=== PATIENT | female | born 1970 | race Caucasian/White ===

== ENCOUNTER 2022-06-25 05:53 | Day surgery (SDC) | payer OTHER ==
[2022-06-23 12:26] VITALS: BP 98/63
[2022-06-23 12:26] LABS: BASOPHILS % (AUTO) 0.6 % (0.0-5.0); EOSINOPHILS % (AUTO) 1.7 % (0.0-8.0); LYMPHOCYTES % (AUTO) 41.8 % (21.0-51.0); MEAN CORPUSCULAR HEMOGLOBIN 31.5 pg (27.0-33.0); MEAN CORPUSCULAR HGB CONC 32.5 g/dL (32.0-36.0); MEAN CORPUSCULAR VOLUME 96.9 fL (79-99); MONOCYTES % (AUTO) 4.6 % (3.0-13.0); NEUTROPHILS % (AUTO) 51.1 % (40.0-77.0); PLATELET COUNT (AUTO) 251 K/uL (130-400); RED BLOOD CELL COUNT(AUTO) 4.13 MIL/uL (4.00-5.50); RED CELL DISTRIBUTION WIDTH 11.9 % (11.0-15.5); WHITE BLOOD COUNT (AUTO) 5.2 K/uL (4.8-10.8)
[2022-06-23 12:40] LABS: ALBUMIN 3.7 g/dL (3.5-5.0); CARBON DIOXIDE 25 mmol/L (21-32); CHLORIDE 102 mmol/L (101-111); CREATININE 0.9 mg/dL (0.5-1.5); GLOMERULAR FILTR. RATE CALC 76 mL/min (>90); GLUCOSE,RANDOM 90 mg/dL (70-105); POTASSIUM 3.7 mmol/L (3.5-5.1); SODIUM SERUM 136 mmol/L (136-145); UREA NITROGEN, BLOOD 10 mg/dL (7-18)
[2022-06-23 12:44] LABS: CRP QUANTITATIVE < 2.00 mg/L (0.00-9.0)
[~2022-06-25] VITALS: Ht 152.4 cm; Wt 66.1 kg
[2022-06-25] VITALS (19 sets, daily range): BP systolic 104–156; BP diastolic 57–88
[~2022-06-25 05:53] MED LIST: ACET-66 PO; CYCL30DR OU; DULO60CA64 PO; HYDR-3830 PO; LEVO50TA11 PO; PANT40TA54 PO; POLY17PO4 PO; PRAV40TA3 PO; PREM3 PO; SUMA50TA17 PO; TOPI100T37 PO
[2022-06-25] MEDS ORDERED: CEFAZOLIN SODIUM 2 GM VIAL ONE (06:25)
[2022-06-25] MEDS ORDERED: LACTATED RINGERS 1000ML 1,000 ML IV ONE (06:25)
[2022-06-25] MEDS ORDERED: BUPIVACAINE/PF 0.25% 30ML VIAL IJ ONE (06:45)
[2022-06-25] MEDS ORDERED: EPINEPHRINE PF 1MG (1:1,000) 1 MG/ML AMP ONE (06:45)
[2022-06-25] MEDS ORDERED: FENTANYL CITRATE PF 50 MCG/1 ML 2ML VIAL ONE (07:19)
[2022-06-25] MEDS ORDERED: MIDAZOLAM HCL 1 MG/ML 2ML VIAL ONE (07:19)
[2022-06-25] MEDS ORDERED: CEFAZOLIN SODIUM 2 GM VIAL IVPB ONE (07:20)
[2022-06-25] MEDS ORDERED: LIDOCAINE PF 100MG/5ML (2%) SYRINGE 5ML ONE (07:24)
[2022-06-25] MEDS ORDERED: PROPOFOL 10 MG/ML 20ML VIAL IV ONE (07:25)
[2022-06-25] MEDS ORDERED: ROCURONIUM 10MG/1ML SYR 10 MG/ML ML ONE (07:25)
[2022-06-25] MEDS ORDERED: ROPIVACAINE 0.5% 5MG/ML 30ML IJ ONE (07:44)
[2022-06-25] MEDS ORDERED: DEXAMETHASONE SOD PHOSPHATE 4 MG/ML 1ML VIAL ONE (07:45)
[2022-06-25] MEDS ORDERED: EPINEPHRINE PF 1MG (1:1,000) 1 MG/ML AMP IVP ONE (08:28)
[2022-06-25] MEDS ORDERED: ONDANSETRON 4MG INJ ONE ×2 (08:50→12:12)
[2022-06-25] MEDS ORDERED: HYDR-4060 PO (12:23)
== END 2022-06-25 14:15 | disposition home or self-care (01) ==
LOC: DAH 05:53
PROVIDERS: ATTEND Student in an Organized Health Care Education/Training Program
DX: M75.121 Complete rotator cuff tear or rupture of right shoulder, not specified as traumatic (principal); Z20.822 Contact with and (suspected) exposure to COVID-19; M75.21 Bicipital tendinitis, right shoulder; M25.711 Osteophyte, right shoulder; M75.41 Impingement syndrome of right shoulder; K21.9 Gastro-esophageal reflux disease without esophagitis; F41.9 Anxiety disorder, unspecified; G43.909 Migraine, unspecified, not intractable, without status migrainosus; M79.7 Fibromyalgia; E78.5 Hyperlipidemia, unspecified; Z90.710 Acquired absence of both cervix and uterus; Z79.899 Other long term (current) drug therapy; Z98.890 Other specified postprocedural states
CPT/HCPCS: 82040; 80048; 84703; 85025; 84134; 86140; 87426; 36415; 29827; 29824; 29828; 64415; 29826; J1100; C1713 ×3; A4663; J7030; A4565; J7120; J3010; J2001; J0171 ×2; J2250; J2704; J2405 ×2; J2795; J0690 ×2; A6223; A4649; C1769; A5120; A4215; A4223; A4222; A4221; J3490